=== PATIENT | female | born 1975 | race Caucasian/White ===

== ENCOUNTER 2019-12-16 06:57 | Outpatient (CLI) | payer OTHER, SELFPAY ==
--- NOTE | 2019-12-16 | US_ITS ---
WS: [id number] Thyroid ultrasound, 12/16/2019 Clinical Data: ENLARGED GLAND AND CYST Comparison: Thyroid ultrasound, 03/14/2019 Findings: The right lobe of thyroid measures 4.1 cm x 1.9 cm x 1.6 cm. There is a small nodule measuring 0.5 x 0.5 x 0.3 cm unchanged. The left lobe measures 3.7 cm x 1.1 cm x 1.8 cm. The isthmus measured 0.2 mm. The echotexture of the thyroid is uniform. No cyst or masses are seen. US/US thyroid [id number] Impression: Small right thyroid nodule, otherwise negative thyroid ultrasound.
== END 2019-12-16 06:58 | disposition home or self-care (01) ==
PROVIDERS: Family Provider Family Medicine; PCP Family Medicine; Visit Provider Nurse Practitioner Family
DX: E04.9 Nontoxic goiter, unspecified (principal); E04.1 Nontoxic single thyroid nodule
CPT/HCPCS: 76536

== ENCOUNTER 2020-12-10 16:39 | Outpatient (CLI) | payer OTHER, SELFPAY ==
[2020-12-10 17:30] LABS: Anion Gap 12.3 (5-19); Blood Urea Nitrogen 10 mg/dL (6-20); Calcium 8.7 mg/dL (8.5-10.5); Carbon Dioxide 30 mmol/L (22-29); Chloride 101 mmol/L (98-107); Glomerular Filtration Rate 53.5 mL/min (90-130); Glucose 115 mg/dL (65-115); Osmolality Calculated 290 mOsm/kg (285-295); Potassium 3.3 mmol/L (3.5-5.1); Sodium 140 mmol/L (136-145); Thyroid Stimulating Hormone 4.13 uIU/mL (0.27-4.20)
== END 2020-12-10 16:40 | disposition home or self-care (01) ==
PROVIDERS: PCP Nurse Practitioner Family; Visit Provider Nurse Practitioner Family
DX: E03.8 Other specified hypothyroidism (principal); E04.1 Nontoxic single thyroid nodule; R60.9 Edema, unspecified
CPT/HCPCS: 80048; 84443

== ENCOUNTER 2025-07-06 16:42 | Outpatient (CLI) | payer OTHER, SELFPAY ==
--- NOTE | 2025-07-06 16:50 | US_ITS ---
WS: [id number] Soft tissue ultrasound of the Clinical Data: RT SHOULDER LUMP Comparison: None. Findings: There is an echogenic soft tissue density measuring 0.5 x 2.3 x 3.3 cm. It has a smooth border and consistent echotexture. No fluid is seen within. US/US soft tissue/extremity [id number] Impression: Soft tissue density in the subcutaneous area of the right shoulder which is non specific but could represent a lipoma.
== END 2025-07-06 16:43 | disposition home or self-care (01) ==
LOC: RAD 16:46
PROVIDERS: PCP Nurse Practitioner Family; Visit Provider Nurse Practitioner Family
DX: M75.81 Other shoulder lesions, right shoulder (principal)
CPT/HCPCS: 76882